=== PATIENT | male | born 1990 | race Caucasian/White ===

== ENCOUNTER 2022-08-15 09:56 | Emergency (ER) | payer SELFPAY ==
[2022-08-15 09:57] VITALS: BP 146/92; PULSE 107; RESP 18; TEMP 36.9; O2SAT 94
--- NOTE | 2022-08-15 10:13 | ED.GENADUL_ITS ---
Discharge Plan Disposition Patient Disposition: Home Condition: Improving Discharge Details Clinical Impression: Acute bronchitis [facility]: Daniel Torrez Home Meds and New Rx's Prescriptions: New doxycycline hyclate 100 mg capsule 100 mg PO BID 10 Days Qty: 20 0RF guaifenesin [Mucinex] 600 mg tablet extended release 12hr 600 mg PO Q12H PRNQty: 10 0RF Discharge Instructions Instructions: Acute Bronchitis (ED) Additional Instructions: Home to rest today. Small, frequent sips of fluids to maintain hydration. Recommend use Mucinex as prescribed to clear your congestion. Please take doxycycline as prescribed until finished. Return to the ER for any acute concerns. Medical Decision Making This is a 32-year-old male who presents from home. He has 4 to 5 days of cough, congestion, some production of yellow sputum, generalized malaise and chills. He arrives with a slightly elevated pulse of 107 at triage after ambulating. He is oxygenating normally at 94%. His exam reveals basilar rhonchi. Otherwise healthy gentleman. He has a differential diagnosis that would include viral syndrome, pneumonitis, pneumonia or bronchitis. He underwent rapid influenza and COVID screening as well as CXR. Influenza and COVID are negative. Chest x-ray without focal infiltrate. Discussed with patient I will treat him for bronchitis. He is stable and appropriate for an outpatient course of antibiotics. HPI General Mode of arrival: ambulatory . Date/Time Provider Initiated Documentation: 08/15/22 09:57 . Limitations to Documentation: no limitations . Information obtained by: patient . History of Present Illness 32 year old M presents to the emergency department with the chief complaint of Fever, cough, body ache, congestion, described as moderate, and is localized to the chest. Patient reports no radiation. Patient started experiencing this day(s) and it has been intermittent. No relieving factors improve symptom(s), No exacerbating factors reported . Patient notes cough and fever/chills; denies chest pain, nausea/vomiting and shortness of breath. Patient did receive the following treatments prior to arrival, none Related Data Home Medications Medication Instructions Recorded Confirmed doxycycline hyclate 100 mg capsule 100 mg PO BID 10 days #20 caps 08/15/22 guaifenesin 600 mg tablet, 600 mg PO Q12H PRN #10 tabs 08/15/22 extended release 12 hr (Mucinex) Previous Rx's Medication Instructions Recorded doxycycline hyclate 100 mg capsule 100 mg PO BID 10 days #20 caps 08/15/22 guaifenesin 600 mg tablet, 600 mg PO Q12H PRN #10 tabs 08/15/22 extended release 12 hr (Mucinex) Allergies Allergy/AdvReac Type Severity Reaction Status Date / Time amoxicillin Allergy Mild Skin Rash Unverified 08/15/22 10:04 cephalexin [From Keflex] Allergy Mild Skin Rash Unverified 08/15/22 10:04 Penicillins Allergy Mild Skin Rash Unverified 08/15/22 10:04 General Stated Complaint: RespSymp MIR: 4 Review of Systems Narrative: Immunized against COVID. Able to eat and drink. No shortness of breath. See HPI. 8 systems were reviewed. PFSH All Active Problems (Updated 08/15/22 @ 10:37 by Daniel Torrez MD) Acute bronchitis (Acute) Social History Smoking/Tobacco Use Status: Never Smoking risk assessment performed?: Yes Alcohol Intake: never Drug use: Never Substance use type: does not use Do you feel safe at home: Yes Do you feel safe in your relationship?: Yes Exam Narrative Exam Narrative: GEN: awake, alert, oriented 3. Pleasant, well groomed, interactive. HEAD: Normocephalic, atraumatic ENT: Mucous membranes moist, oropharynx unremarkable, tympanic membranes clear bilaterally, external ear exam unremarkable EYES: PERRL, EOMI NECK: Full ROM, no BABAR, no menigismus CHEST/RESP: Nontender, right base rhonchi present CARDIOVASCULAR: Regular and borderline tachycardic, no murmur, rub marek. 2+ Rad pulse bilateral ABDOMEN: Soft, nontender, no mass. +Bowel sounds EXT: Full ROM, no edema, no rash Neuro: Grossly normal neurologic exam, conversant, interactive. Psych: Speech fluent, thoughts congruent, affect normal Course Vital Signs Vital signs: Vital Signs Temperature 36.9 C 08/15/22 09:57 Pulse 107 H 08/15/22 09:57 Respiratory Rate 18 08/15/22 09:57 Blood Pressure 146/92 H 08/15/22 09:57 Pulse Oximetry 94 08/15/22 09:57 Temperature 36.9 C 08/15/22 09:57 Temperature Source Temporal Artery Scan 08/15/22 09:57 Pulse 107 H 08/15/22 09:57 Respiratory Rate 18 08/15/22 09:57 Respiratory Effort 08/15/22 10:01 Respiratory Depth Normal 08/15/22 10:01 Blood Pressure 146/92 H 08/15/22 09:57 Blood Pressure Position Sitting 08/15/22 09:57 Pulse Oximetry 94 08/15/22 09:57 Oxygen Delivery Method Room Air 08/15/22 09:57 Oxygen Flow Rate 0 08/15/22 09:57 Pain Level 4 08/15/22 09:57
--- NOTE | 2022-08-15 10:25 | DI.RAD_ITS ---
Exam(s) XR PORTABLE CHEST AP EXAM: XR PORTABLE CHEST AP CLINICAL HISTORY: fever, cough, R rhonchi TECHNIQUE: 2D digital imaging was performed. COMPARISON: No exams were available for comparison FINDINGS: LUNGS: Clear. No pleural abnormality seen. HEART: Normal size. AORTA: Normal diameter. BONES: Unremarkable for age. Soft tissues: Unremarkable. IMPRESSION: No acute findings. DATA REPOSITORY: RADIATION DOSE DELIVERED:
== END 2022-08-15 10:53 | disposition home or self-care (01) ==
LOC: ER 10:53
PROVIDERS: Emergency Provider Emergency Medicine
DX: J20.9 Acute bronchitis, unspecified (principal); Z20.822 Contact with and (suspected) exposure to COVID-19
CPT/HCPCS: 99283; 71045; 99284